=== PATIENT | female | born 1990 | race Caucasian/White ===

== ENCOUNTER 2016-07-29 12:05 | Emergency (ER) | payer BC ==
[~2016-07-29] VITALS: Ht 170.2 cm; Wt 106.6 kg
[2016-07-29 12:05] VITALS: BP 109/75; PULSE 79; RESP 18; TEMP 98.2; O2SAT 98
--- NOTE | 2016-07-29 12:05 | NUR ---
pt is 26 y/o F BIB BLS. pt states having continuous substernal chest pain with pain scale 9/10. Pt also states having pain in L arm. Pt reports taking an antacid prior, but stated that it had no effect. AAOx4, no signs of acute resp distress noted. Will continue to monitor.
--- NOTE | 2016-07-29 12:05 | NUR ---
Patient brought in BLS, to bed 5 to gown for evaluation.
--- NOTE | 2016-07-29 12:10 | NUR ---
ER Dr. ryan at bedside examining patient.
--- NOTE | 2016-07-29 12:10 | NUR ---
EKG performed at by [facility]. Physician given copy of EKG for review.
--- NOTE | 2016-07-29 12:50 | NUR ---
Pt medicated prior to d/c.
[2016-07-29 13:00] VITALS: BP 109/75; PULSE 79; RESP 18; TEMP 98.2; O2SAT 98
--- NOTE | 2016-07-29 13:00 | NUR ---
Patient given written and verbal discharge instructions and verbalizes understanding. ER MD discussed with patient the results and treatment provided. Patient in stable condition. ID arm band removed. Patient educated on pain management and to follow up with PMD. Pain Scale 2. Opportunity for questions provided and answered.
[2016-07-29] MEDS ORDERED: IBUPROFEN 800 MG TABLET ONE (13:13)
== END 2016-07-29 13:00 | disposition home or self-care (01) ==
LOC: SED 12:05
DX: M94.0 Chondrocostal junction syndrome [Tietze] (principal); Z88.1 Allergy status to other antibiotic agents
CPT/HCPCS: 93005; 99283

== ENCOUNTER 2017-12-09 20:55 | Emergency (ER) | payer BC ==
[~2017-12-09] VITALS: Ht 170.2 cm; Wt 111.1 kg
[2017-12-09 21:00] VITALS: BP_SYST 143
[2017-12-09] MEDS ORDERED: MORPHINE 2 MG/ML INJ. SYRINGE IM ONE (22:00)
[2017-12-09] MEDS ORDERED: KETOROLAC TROMETHAMINE 30 MG VIAL IM ONE (22:00)
[2017-12-09] MEDS ORDERED: PENICILLIN G BENZATHINE 1.2 MMU/2 ML SYR IM ONE (22:00)
[2017-12-09 22:32] LABS: BASOPHILS # (AUTO) 0.1 K/uL (0.0-0.2); BASOPHILS % (AUTO) 0.7 % (0.0-2.0); EOSINOPHILS % (AUTO) 0.4 % (0.0-4.0); HEMATOCRIT 40.9 % (36-48); HEMOGLOBIN 13.7 g/dL (12.0-16.0); LYMPHOCYTES % (AUTO) 23.3 % (20.5-51.5); MEAN CORPUSCULAR HEMOGLOBIN 29 pg (27-31); MEAN CORPUSCULAR HGB CONC 34 % (32-36); MEAN CORPUSCULAR VOLUME 87 fL (79.0-98.0); MONOCYTES # (AUTO) 0.4 K/uL (0.0-1.0); MONOCYTES % (AUTO) 5.2 % (1.7-9.3); NEUTROPHILS # (AUTO) 5.9 K/uL (1.8-7.7); NEUTROPHILS % (AUTO) 70.4 % (40.0-70.0); PLATELET COUNT (AUTO) 248 K/uL (130-430); RED BLOOD CELL COUNT(AUTO) 4.71 MIL/uL (4.2-6.2); RED CELL DISTRIBUTION WIDTH 12.8 % (9.0-15.0); WHITE BLOOD COUNT (AUTO) 8.4 K/uL (4.8-10.8)
[2017-12-09 22:52] VITALS: BP_SYST 143
== END 2017-12-09 22:52 | disposition home or self-care (01) ==
LOC: SED 20:55
DX: J03.90 Acute tonsillitis, unspecified (principal); Z88.1 Allergy status to other antibiotic agents; Z88.2 Allergy status to sulfonamides; Z88.8 Allergy status to other drugs, medicaments and biological substances
CPT/HCPCS: 36415; 81025; 84703; 85025; 86403; 87081; 96372; 99284; J0561; J1885; J2270

== ENCOUNTER 2018-07-27 11:41 | Emergency (ER) | payer BC ==
[~2018-07-27] VITALS: Ht 170.2 cm; Wt 108.9 kg
[2018-07-27 11:41] VITALS: BP_SYST 127
== END 2018-07-27 13:40 | disposition left against medical advice (07) ==
LOC: SED 11:41
DX: R07.89 Other chest pain (principal); Z53.21 Procedure and treatment not carried out due to patient leaving prior to being seen by health care provider; Z88.1 Allergy status to other antibiotic agents; Z88.8 Allergy status to other drugs, medicaments and biological substances
CPT/HCPCS: 93005